=== PATIENT | female | born 1960 | race Caucasian/White ===

== ENCOUNTER 2017-10-21 17:11 | Emergency (ER) | payer BC, OTHER ==
[2017-10-21 17:41] VITALS: BP 183/94; PULSE 82; RESP 18; TEMP 98
[2017-10-21] MEDS ORDERED: KETOROLAC 60 MG/2 ML VIAL IM STA (18:36)
[2017-10-21] MEDS ORDERED: ORPHENADRINE 30 MG/ML 2 ML VIAL IM STA (18:36)
--- NOTE | 2017-10-21 19:06 | XR ---
EXAMINATION TYPE: XR cervical spine comp DATE OF EXAM: 10/21/2017 COMPARISON: NONE HISTORY: Neck pain TECHNIQUE: 6 views FINDINGS: There is mild straightening of the vertebra. There is narrowing at C5-6 disc space and mild spurring of the endplates. There are no cervical ribs. Atlantoaxial facet joint is normal. I see no bony destructive process. There is uncovertebral spurring and mild neural foraminal impingement at C5 -6 on the right side. IMPRESSION: Spondylotic changes as above. No fracture seen.
--- NOTE | 2017-10-21 19:07 | XR ---
EXAMINATION TYPE: XR thoracic spine 2V DATE OF EXAM: 10/21/2017 COMPARISON: NONE HISTORY: Back pain TECHNIQUE: 3 views FINDINGS: Thoracic vertebra have normal alignment. I see no compression fracture. There is no paraspi nal mass. Posterior elements are intact. IMPRESSION: Negative thoracic spine exam.
--- NOTE | 2017-10-21 19:25 | ED ---
General Adult HPI - General Chief complaint: Neck Pain/Injury Stated complaint: [facility] - BACK AND NECK PAIN Time Seen by Provider: 10/21/17 18:31 Source: patient, RN notes reviewed Mode of arrival: ambulatory Limitations: no limitations - History of Present Illness Initial comments: 56 yo female presents for neck tightness and upper back tightness. She almost fell at work today and she caught herself and since she's had a jarring-like sensation in her neck. She states it just feels tight. It hurts to move her neck. She states there is no fall or direct trauma to the neck. She states that she has no other complaints at this time. Otherwise feeling well. Pain is moderate. It radiates into her shoulders. No low back pain.Patient denies any recent fever, chills, shortness of breath, chest pain, back pain, abdominal pain, nausea vomiting, numbness or tingling, dysuria or hematuria, constipation or diarrhea, headaches or visual changes, or any other current symptoms. - Related Data Home Medications Medication Instructions Recorded Confirmed Ranitidine HCl [Zantac] 300 mg PO DAILY 04/17/17 04/18/17 Previous Rx's Medication Instructions Recorded Ibuprofen [Motrin] 600 mg PO Q6HR PRN #20 tab 10/21/17 Orphenadrine [Norflex] 100 mg PO Q12H #10 tablet.er 10/21/17 Allergies Allergy/AdvReac Type Severity Reaction Status Date / Time ciprofloxacin [From Cipro] Allergy Swelling Verified 10/21/17 17:40 OF LIPS Review of Systems ROS Statement: Those systems with pertinent positive or pertinent negative responses have been documented in the HPI. ROS Other: All systems not noted in ROS Statement are negative. Past Medical History Past Medical History: Hyperlipidemia Additional Past Medical History / Comment(s): "positive colon test at family dosctor" History of Any Multi-Drug Resistant Organisms: None Reported Past Surgical History: Section, Tonsillectomy Additional Past Surgical History / Comment(s): c section x2, back surgery Past Anesthesia/Blood Transfusion Reactions: No Reported Reaction Past Psychological History: No Psychological Hx Reported Smoking Status: Current every day smoker Past Alcohol Use History: None Reported Past Drug Use History: None Reported - Past Family History Father Family Medical History: Deep Vein Thrombosis (DVT) Son(s) Family Medical History: Cancer Additional Family Medical History / Comment(s): leukemia General Exam Limitations: no limitations General appearance: alert, in no apparent distress Head exam: Present: atraumatic, normocephalic, normal inspection ENT exam: Present: normal exam, mucous membranes moist Neck exam: Present: normal inspection, tenderness (Paraspinal region). Absent: meningismus, lymphadenopathy Respiratory exam: Present: normal lung sounds bilaterally. Absent: respiratory distress, wheezes, rales, rhonchi, stridor Cardiovascular Exam: Present: regular rate, normal rhythm, normal heart sounds. Absent: systolic murmur, diastolic murmur, rubs, gallop, clicks Back exam: Present: normal inspection, full ROM. Absent: tenderness Neurological exam: Present: alert, oriented X3 Psychiatric exam: Present: normal affect, normal mood Skin exam: Present: warm, dry, intact, normal color. Absent: rash Course Vital Signs 10/21/17 17:36 Temperature 98.0 F Pulse Rate 82 Respiratory 18 Rate Blood Pressure 183/94 O2 Sat by Pulse 99 Oximetry Medical Decision Making - Medical Decision Making 56-year-old female presents with what appears to be cervical strain. X-rays are reviewed and discussed the patient. This time we'll start her on muscle relaxers for home as well as anti-inflammatories. We did discuss senior care. We discussed return parameters and follow-up and all questions. Patient stated that she understood and she is agreement this plan. All questions have been answered. She'll be discharged. - Radiology Data Radiology results: report reviewed, image reviewed Disposition Clinical Impression: Cervical strain, acute Disposition: HOME SELF-CARE Condition: Stable Instructions: Cervical Strain (ED) Additional Instructions: Please use medication as discussed. Please follow up with family doctor if symptoms have not improved over the next two days. Please return to the emergency room if your symptoms increase or worsen or for any other concerns. Prescriptions: Ibuprofen [Motrin] 600 mg PO Q6HR PRN #20 tab PRN Reason: Pain Orphenadrine [Norflex] 100 mg PO Q12H #10 tablet.er Referrals: Dede Gregory MD [Primary Care Provider] - 1-2 days Time of Disposition: 19:25
== END 2017-10-21 19:30 | disposition home or self-care (01) ==
LOC: EC 17:11
DX: S16.1XXA Strain of muscle, fascia and tendon at neck level, initial encounter (principal); F17.200 Nicotine dependence, unspecified, uncomplicated; Z79.899 Other long term (current) drug therapy; W18.49XA Other slipping, tripping and stumbling without falling, initial encounter; Y92.69 Other specified industrial and construction area as the place of occurrence of the external cause; Y99.0 Civilian activity done for income or pay
CPT/HCPCS: 72070; 72050; 99283; 96372 ×2; J2360; J1885

== ENCOUNTER → 2017-10-24 | Outpatient (CLI) | payer OTHER ==
--- NOTE | 2017-10-24 10:11 | XR ---
Right RIBS and chest x-ray HISTORY: Trauma, pain 2 views of the right RIBS, 2 views of the chest submitted. No comparisons There is no evident airspace disease, pneumothorax, or pleural effusion. Cardiomediastinal silhouette , pulmonary vascularity and brian are within normal limits. The patient is rotated. IMPRESSION: No acute abnormality. Consider alternate imaging as indicated.
== END | disposition home or self-care (01) ==
LOC: RADXRMAIN 09:39
PROVIDERS: ATTEND Emergency Medicine
DX: S20.30 Unspecified superficial injuries of front wall of thorax (principal)
CPT/HCPCS: 71046